=== PATIENT | male | born 1965 | race Caucasian/White ===

== ENCOUNTER → 2017-01-06 | Day surgery (SDC) | payer OTHER ==
[~2017-01-06] VITALS: Ht 170.2 cm; Wt 98.9 kg
[~2017-01-06] MED LIST: ACETAMINOPHEN 500 MG TAB PO PRN; BACITRACIN OINT 30GM As Ordered ONE; BUPIVACAINE HCL 0.25% 30 ML VIAL As Ordered ONE; BUSP10TA PO; FLOM5CAP PO; FOLI1TAB2 PO; LEVO125T3 PO; LIDOCAINE 1% SDV INJ 30 ML VIAL As Ordered ONE; LISI-538 PO; LR 1,000 ML IV SCH; METH2.5TA PO; METOCLOPRAMIDE INJ 10MG/2ML VIAL (J2765) As Ordered ONE; METOCLOPRAMIDE INJ 10MG/2ML VIAL (J2765) IV PRN; MIDAZOLAM INJ 2 MG/2 ML VIAL (J2250) As Ordered ONE; MIRT15TA3 PO; MORPHINE 2 MG/ML 1ML SYRINGE IV PRN; ONDANSETRON 4MG/2ML VIAL (J2405) IV PRN; PRAZ2CAP PO; PROPOFOL 200 MG/20 ML VIAL As Ordered ONE; SERT50TA PO; SUMA100T2 PO; TRAZ50TA4 PO; ePHEDrine SULFATE 25 MG/5 ML(5MG/ML) SYRINGE As Ordered ONE; fentaNYL 100 MCG/2 ML INJECTION (J3010) As Ordered ONE; fentaNYL 100 MCG/2 ML INJECTION (J3010) IV PRN
[2017-01-06 15:20] VITALS: BP 143/82
--- NOTE | 2017-01-08 15:58 | RO ---
DATE OF PROCEDURE: 01/06/2017 PREOPERATIVE DIAGNOSIS: Fertility. POSTOPERATIVE DIAGNOSIS: Fertility. PROCEDURE: Bilateral prophylactic vasectomy. SURGEON: Dr. Xavi Bhandari WINDOWS SECURITY ANALYST: Austen Haider, PGY-3, resident, urology ANESTHESIA: General. COMPLICATIONS: None. ESTIMATED BLOOD LOSS: N/A. HISTORY OF PRESENT ILLNESS: 51-year-old male patient who has requested an elective bilateral vasectomy. For this reason, he has consented for a bilateral prophylactic vasectomy and he is here for the procedure today. PROCEDURE DESCRIPTION: In a patient in supine position under general anesthesia, after prepping and draping the area of concern, which included the entire genitalia and abdomen, we started by palpating the left vas deferens. Once we found it, we applied local anesthesia with Marcaine 0.25% and lidocaine 1%, a total of 5 mL. We then proceeded to use sharp non-scalpel forceps and puncture the skin on top of the vas deferens and spread it out. We then introduced ring non-scalpel forceps and grabbed the van deferens. We then dissected with a sharp hemostat and actively vas deferens completely out of area of sheath and then with the ring forceps, we dissected the vas deferens. With the hemostat, we dissected the vas deferens even more; and then with two mosquito clamps, we clamped the vas deferens and cut between both mosquitos of around 2 cm of vas deferens. We then fulgurated each end, and we then tied each end with a chromic #3-0 suture ligation. We then dropped the vas deferens into the scrotal sac and closed the skin with a chromic #3-0. We performed the same procedure on the right contralateral side and also closed the skin with a #3-0 chromic. PLAN: The patient will go home with pain medication such as Tylenol 500 mg every 6 hours over the counter for 3 days. He cannot have exercise for 1 week and no sex for 2 weeks. No unprotected sexual intercourse for 2 months. He needs to use condoms for 2 months and 15 ejaculations, and he has to have a semen analysis negative for sperm before he has sex without protection. The patient understands well. He will be discharged home today. [facility] with a semen analysis in 2 months.
== END | disposition home or self-care (01) ==
LOC: M SDC 10:37
PROVIDERS: ATTEND Urology
DX: Z30.2 Encounter for sterilization (principal); I10 Essential (primary) hypertension; E03.9 Hypothyroidism, unspecified; R41.9 Unspecified symptoms and signs involving cognitive functions and awareness; F43.10 Post-traumatic stress disorder, unspecified; N40.0 Benign prostatic hyperplasia without lower urinary tract symptoms; M32.9 Systemic lupus erythematosus, unspecified; D64.9 Anemia, unspecified; G47.30 Sleep apnea, unspecified; Z86.73 Personal history of transient ischemic attack (TIA), and cerebral infarction without residual deficits; F17.210 Nicotine dependence, cigarettes, uncomplicated; Z79.899 Other long term (current) drug therapy; Z88.5 Allergy status to narcotic agent; Z88.8 Allergy status to other drugs, medicaments and biological substances
CPT/HCPCS: 55250; 88302; J0690; J2250; J2765; J3010

== ENCOUNTER → 2017-01-06 | Outpatient (CLI) | payer OTHER ==
[~2017-01-06] MED LIST changes: -ACETAMINOPHEN 500 MG TAB PO PRN; -BACITRACIN OINT 30GM As Ordered ONE; -BUPIVACAINE HCL 0.25% 30 ML VIAL As Ordered ONE; -LIDOCAINE 1% SDV INJ 30 ML VIAL As Ordered ONE; -LR 1,000 ML IV SCH; -METOCLOPRAMIDE INJ 10MG/2ML VIAL (J2765) As Ordered ONE; -METOCLOPRAMIDE INJ 10MG/2ML VIAL (J2765) IV PRN; -MIDAZOLAM INJ 2 MG/2 ML VIAL (J2250) As Ordered ONE; -MORPHINE 2 MG/ML 1ML SYRINGE IV PRN; -ONDANSETRON 4MG/2ML VIAL (J2405) IV PRN; -PROPOFOL 200 MG/20 ML VIAL As Ordered ONE; -ePHEDrine SULFATE 25 MG/5 ML(5MG/ML) SYRINGE As Ordered ONE; -fentaNYL 100 MCG/2 ML INJECTION (J3010) As Ordered ONE; -fentaNYL 100 MCG/2 ML INJECTION (J3010) IV PRN
--- NOTE | 2017-01-06 10:59 | REP ---
TWO-VIEW CHEST: COMPARISON: 10/10/2012 There is no evidence of acute infiltrate. No pleural effusion is seen. The heart is normal in size. The mediastinal silhouette is unremarkable. The visualized osseous structures are intact. IMPRESSION: No acute pulmonary disease. Signed by Young Lopez MD 01/06/2017 12:16 P
--- NOTE | 2017-01-06 22:17 | ECGEPIP ---
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 Left axis deviation. No prior ECG available for comparison at the time of interpretation. Electronically Signed On 01-06-2017 22:17:50 EDT by Cedrick Johnson
== END ==
LOC: M EKG 09:54
PROVIDERS: ATTEND Nurse Practitioner Women's Health
DX: Z30.09 Encounter for other general counseling and advice on contraception (principal); Z01.818 Encounter for other preprocedural examination

== ENCOUNTER 2020-02-24 17:59 | Emergency (ER) | payer OTHER ==
[~2020-02-24] VITALS: Ht 167.6 cm; Wt 116.3 kg
[~2020-02-24 17:59] MED LIST changes: +FLOM0.4C39 PO; -FLOM5CAP PO; +FOLI1TAB11 PO; -FOLI1TAB2 PO; -LEVO125T3 PO; +LEVO125T4 PO; +METH2.5T48 PO; -METH2.5TA PO; +SERT-141 PO; -SERT50TA PO; +TRAZ-252 PO; -TRAZ50TA4 PO
[2020-02-24 18:59] LABS: HEMATOCRIT 41.8 % (42.0-52.0); HEMOGLOBIN 13.9 g/dl (13.5-17.5); MEAN CORPUSCULAR HEMOGLOBIN 29.9 pg (27.0-33.0); MEAN CORPUSCULAR HGB CONC 33.3 g/dl (32.0-36.5); MEAN CORPUSCULAR VOLUME 89.9 fl (80.0-96.0); PLATELET COUNT, AUTOMATED 178 10^3/uL (150-450); RED BLOOD COUNT 4.65 10^6/uL (4.30-6.10)
[2020-02-24 19:32] LABS: ALBUMIN 3.5 GM/DL (3.2-5.2); ALT/SGPT 22 U/L (12-78); BILIRUBIN,TOTAL 0.2 MG/DL (0.2-1.0); BLOOD UREA NITROGEN 16 MG/DL (7-18); CARBON DIOXIDE LEVEL 28 MEQ/L (21-32); CHLORIDE LEVEL 109 MEQ/L (98-107); CK-MB VALUE MASS 3.5 NG/ML (<3.6); CPK CREATINE PHOSPHOKINASE 123 U/L (39-308); CREATININE FOR GFR 0.82 MG/DL (0.70-1.30); GLOMERULAR FILTRATION RATE > 60.0 (>56); GLUCOSE, FASTING 81 MG/DL (70-100); MAGNESIUM LEVEL 2.2 MG/DL (1.8-2.4); MB/CK RELATIVE INDEX 2.85 (< OR =4); NT-PRO BNP 14 PG/ML (<125); POTASSIUM SERUM 3.8 MEQ/L (3.5-5.1); SODIUM LEVEL 140 MEQ/L (136-145); TOTAL PROTEIN 6.5 GM/DL (6.4-8.2); TROPONIN I < 0.02 NG/ML (< 0.10)
--- NOTE | 2020-02-24 19:39 | REPVR ---
PROCEDURE INFORMATION: Exam: US Duplex Lower Extremity Veins, Bilateral Exam date and time: 02/24/2020 7:29 PM Age: 54 years old Clinical indication: Pain; Leg, lower; Bilateral; Additional info: Lower leg swelling; R/O dvt TECHNIQUE: Imaging protocol: Real-time duplex ultrasound of the extremities with 2-D best scale, color Doppler flow and spectral waveform analysis with image documentation. Complete exam focused on the bilateral lower extremity veins. COMPARISON: No relevant prior studies available. FINDINGS: Right deep veins: Unremarkable. The common femoral, femoral, proximal profunda femoral and popliteal veins are patent without thrombus. Normal Doppler waveforms. Normal compressibility and/or augmentation response. Right superficial veins: Saphenofemoral junction is patent without thrombus. Left deep veins: Unremarkable. The common femoral, femoral, proximal profunda femoral and popliteal veins are patent without thrombus. Normal Doppler waveforms. Normal compressibility and/or augmentation response. Left superficial veins: Saphenofemoral junction is patent without thrombus. Soft tissues: Unremarkable. IMPRESSION: No sonographic evidence of deep vein thrombosis. Electronically signed by: Antonio Mojica On 02/24/2020 19:39:49 PM
--- NOTE | 2020-02-24 20:02 | REP ---
Clinical: Shortness of breath . Comparison: 01/06/2017 . Findings: The mediastinum and cardiac silhouette are stable and within normal limits for portable technique. The lung joshi are clear without acute focal consolidation, effusion, or pneumothorax. Skeletal structures are intact. Impression: No acute cardiopulmonary process appreciated. Electronically Signed by Aris Velez MD 02/24/2020 07:54 P
[2020-02-24] MEDS ORDERED: FUROSEMIDE 20MG/2ML VIAL (J1940) IV ONE (20:30)
[2020-02-24] MEDS ORDERED: K-TA10TA2 PO (20:39)
[2020-02-24] MEDS ORDERED: HYDR25TAB PO (20:39)
[2020-02-24 20:53] VITALS: BP 170/84
--- NOTE | 2020-02-25 08:11 | ECGEPIP ---
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
== END 2020-02-24 21:25 | disposition home or self-care (01) ==
LOC: M ED 17:59
DX: M79.89 Other specified soft tissue disorders (principal); I10 Essential (primary) hypertension; N40.0 Benign prostatic hyperplasia without lower urinary tract symptoms; E03.9 Hypothyroidism, unspecified; F43.10 Post-traumatic stress disorder, unspecified; Z86.73 Personal history of transient ischemic attack (TIA), and cerebral infarction without residual deficits; Z88.5 Allergy status to narcotic agent; Z79.899 Other long term (current) drug therapy
CPT/HCPCS: 71045; 80053; 82550; 82553; 83735; 83880; 84443; 84484; 85027; 93005; 93041; 93970; 94760; 96374; 99285; J1940

== ENCOUNTER → 2020-03-18 | Outpatient (CLI) | payer OTHER ==
[~2020-03-18] MED LIST changes: +HYDR25TAB PO; +K-TA10TA2 PO
--- NOTE | 2020-03-18 14:58 | REP ---
ULTRASOUND-GUIDED RIGHT LATERAL THIGH FLUID DRAINAGE The procedure was performed under the direct supervision of Dr. Lisa. The patient has a history of A 4 x 0.7 cm subcutaneous fluid collection in the soft tissues of the lateral right thigh is seen on a previous CT scan dated 03/04/2020. Preliminary sonography today shows no visible fluid collection. Impression: The previously seen fluid collection in the right thigh is not visualized today. Electronically Signed by CURTIS Toledo 03/18/2020 09:23 A Electronically Signed by Vasile Lisa MD 03/18/2020 02:50 P
== END ==
LOC: M IRPRO 08:18
PROVIDERS: ATTEND Nurse Practitioner Family
DX: L03.113 Cellulitis of right upper limb (principal)